=== PATIENT | female | born 1995 | race Caucasian/White ===

== ENCOUNTER → 2020-05-12 | Outpatient (CLI) | payer BC, SELFPAY ==
[2017-07-13 18:02] VITALS: BMI 20.3
== END | disposition home or self-care (01) ==
LOC: LABSPEC 15:28
PROVIDERS: PCP Family Medicine; Referring Provider Family Medicine; Visit Provider Family Medicine
DX: Z20.828 Contact with and (suspected) exposure to other viral communicable diseases (principal)
CPT/HCPCS: 87635; U0003

== ENCOUNTER → 2020-06-03 | Outpatient (CLI) | payer BC, SELFPAY ==
[2017-07-13 18:02] VITALS: BMI 20.3
== END | disposition home or self-care (01) ==
LOC: LABSPEC 11:33
PROVIDERS: PCP Family Medicine; Referring Provider Family Medicine; Visit Provider Family Medicine
DX: U07.1 COVID-19 (principal)
CPT/HCPCS: 87635; U0003

== ENCOUNTER 2020-07-05 14:28 | Emergency (ER) | payer BC, SELFPAY ==
[2020-07-05 14:28] VITALS: BP 129/82; PULSE 82; RESP 16; TEMP 36.5; O2SAT 97; BMI 24.3
--- NOTE | 2020-07-05 15:13 | RAD_ITS ---
STUDY: X-RAY CHEST REASON FOR EXAM: Female, 25 years old. chest pain for several days, feels like a pulled muscle TECHNIQUE: AP COMPARISON: 01/27/2015 FINDINGS: The lungs are clear and expanded. There is no demonstrated pleural abnormality. Normal size heart. Normal mediastinum and tish. Normal visualized pulmonary arteries. Normal visualized aortic arch and descending thoracic aorta. Normal visualized thoracic spine. Normal visualized ribs, clavicles, and shoulders. There is no demonstrated abnormality of the visualized soft tissue structures of the upper abdomen. RAD/Chest 1 View (Portable) IMPRESSION: Nonacute portable x-ray examination of the chest. Electronically Signed: Kane Aceves MD ([place]) at 15:30 EST , Service support ,
--- NOTE | 2020-07-05 15:14 | EKG12_ITS ---
Test Reason : Blood Pressure : / mmHG Vent. Rate : 079 BPM Atrial Rate : 079 BPM P-R Int : 108 ms QRS Dur : 080 ms QT Int : 394 ms P-R-T Axes : 004 064 023 degrees QTc Int : 451 ms Sinus rhythm with short NE Otherwise normal ECG Confirmed by ASAD BOOKER, BRIAN ([id number]), movie editor BISHOP FRANCIS ([id number]) on 07/06/2020 10:34:17 AM Referred By: TRISTON Confirmed By:BRIAN KAMARA MD
[2020-07-05] MEDS: Naproxen 250 MG Tablet 500 MG PO (15:18)
--- NOTE | 2020-07-05 15:48 | ED.DCSUM_ITS ---
- ER Visit Summary Date of Service: 07/05/20 Chief Complaint: Chest pain History of Present Illness: The patient is a [address] Dasilva. She reports that she has chest pain began 2 days ago. Intermittent pain that lasts seconds at a time. She describes it as throbbing. She does have palpitations w ith this. Pain is 5 out of 10 at worst and she is pain-free currently. Is worsened by touching it. She denies any change with exertion, breathing, or movement. Is relieved by nothing. She reports that she does get mildly short of breath with this. She denies any nausea, vomiting, or diaphoresis. Patient denies any recent trauma. No fall or MVA. She denies any change in activity, but does state that she lifts weight and has been pushing herself. Patient denies any personal or family history of DVT. No recent travel. She is not on control pills. She does not smoke. She denies fever, chills, or cough. No known Covid exposure. She does wear a mask. Physical Examination: Vitals: Stable. Afebrile. General: Well-nourished and well-developed. Head: Normocephalic atraumatic. Neck: Supple, no lymphadenopathy. No JVD. Nontender. Cardiovascular: Regular rate and rhythm. No murmurs. Respiratory: No respiratory distress. Clear to auscultation bilaterally. Moderate tenderness palpation over the left costochondral margin that does reproduce her pain. Abdominal: Soft, nontender, nondistended, normal bowel sounds. No guarding, rebound, or peritoneal signs. Back: Nontender. Extremities: Nontender, no edema. Skin: Normal color, no rash. Neurologic: Alert and oriented ?3. Cranial nerves II through XII are intact. Normal strength and sensation. Psych: Normal affect. Test Results: EKG is sinus at 79. Her GA interval is 108. However, there is no delta wave. The only change from May 2015 is that then her GA interval was 124. Clinical Impression(s) from Imaging Studies Chest X-Ray 07/05/20 15:13 IMPRESSION: Nonacute portable x-ray examination of the chest. Electronically Signed: Kane Aceves MD ([place]) at 15:30 EST , Service support , Emergency Department Course and Treatment: Patient was treated with naproxen. She is resting comfortably. Her palpitations last seconds at a time. With a short GA interval she may have SVT. However, it does not look like WPW without a delta wave. Treatment Plan: Patient will be discharged instructions to not exercise that area until her pain improves. She is instructed use ibuprofen and/or Tylenol for pain. Follow-up her primary care physician 1 week if not improving. Return to the emergency department for any worsening symptoms. Disposition: To home in improved and stable condition. Impression: 1. Musculoskeletal chest pain. 2. Short GA interval. 3. Palpitations. This note was generated with [employer] dictation software. It may contain incorrect words, spelling, and punctuation that were not noted in review of the chart prior to signing ED Disposition - Plan for ED Patient: Instructions: ED Chest Wall Pain, Costochondritis Referrals: Celso Hill MD [Primary Care Provider] - 1 Week if not improving
[2020-07-05 15:53] VITALS: O2SAT 98
== END 2020-07-05 15:55 | disposition home or self-care (01) ==
LOC: ED 14:56
PROVIDERS: Emergency Provider Emergency Medicine; PCP Family Medicine
DX: R07.89 Other chest pain (principal); R00.2 Palpitations; J45.909 Unspecified asthma, uncomplicated; Z79.51 Long term (current) use of inhaled steroids
CPT/HCPCS: 71045; 93005; 99283

== ENCOUNTER 2020-09-30 08:27 | Outpatient (RCR) | payer BC, SELFPAY | END 2020-12-01 23:59 | LOC: IMMUN 08:27 | PROVIDERS: PCP Family Medicine; Referring Provider Family Medicine; Visit Provider Family Medicine | DX: Z23 Encounter for immunization (principal) | CPT/HCPCS: 0001A; 0002A; 91300 ==

== ENCOUNTER 2021-07-12 16:50 | Outpatient (CLI) | payer OTHER, SELFPAY ==
[2021-07-12 17:50] LABS: Hematocrit 38.2 % (37-47); Hemoglobin 12.8 g/dL (12.0-15.0); Mean Corp Hgb Conc 33.5 g/dL (32-36); Mean Corpuscular Hgb 29.7 pg (27.0-32.0); Mean Corpuscular Volume 88.6 fL (81-99); Mean Platelet Vol. 10.8 fl (6.2-12.0); Platelet Count 177 K/mm3 (150-450); RBC Distribution Width CV 12.3 % (11.6-14.6); RBC Distribution Width SD 39.9 fl (35.1-43.9); Red Blood Count 4.31 M/mm3 (4.2-5.4); White Blood Count 6.4 K/mm3 (4.4-11.0)
[2021-07-12 18:01] LABS: Erythrocyte Sedimentation Rate 1 mm/hr (0-30)
[2021-07-12 18:20] LABS: Vitamin D,25 Hydroxy 17.4 ng/mL
[2021-07-12 18:27] LABS: ALB/GLOB Ratio 1.4 RATIO (0.9-2.4); AST(SGOT) 19 U/L (15-37); Alanine Aminotransfer ALT/SGPT 19 U/L (13-56); Albumin, Serum 4.1 g/dL (3.2-5.0); Alkaline Phosphatase 72 U/L (45-117); Anion Gap 8 (5-15); BUN 10 mg/dL (7-18); BUN/Creat Ratio 12.9 RATIO (10-20); Calcium,Total 8.7 mg/dL (8.5-10.1); Chloride 105 mmol/L (98-107); Creatinine, Serum 0.78 mg/dL (0.55-1.02); EST Glomerular Filtration Rate 96 mL/min (>60); Est Glom Filt Rate - Afr Amer 116 mL/min (>60); Ferritin 16 ng/mL (8-252); Glucose 88 mg/dL (74-106); Iron 71 ug/dL (50-170); Potassium 3.3 mmol/L (3.5-5.1); Protein, Total 7.1 g/dL (6.4-8.2); Sodium Level 140 mmol/L (136-145); Thyroid Stim Hormone (TSH) 3.29 uIU/mL (0.358-3.74)
== END 2021-07-12 23:59 | disposition short-term general hospital (02) ==
LOC: MTLAB 16:52
PROVIDERS: PCP Family Medicine; Referring Provider Family Medicine; Visit Provider Family Medicine
DX: R53.83 Other fatigue (principal)
CPT/HCPCS: 36415; 80053; 82306; 82728; 83540; 84443; 85027; 85652

== ENCOUNTER 2022-07-02 03:01 | Emergency (ER) | payer SELFPAY ==
[2022-07-02 03:02] VITALS: BP 134/111; PULSE 97; RESP 16; TEMP 36.6; O2SAT 98; BMI 15.8
[2022-07-02] MEDS: 0.9% Normal Saline 1,000 ML 1000 ML IV (03:35)
[2022-07-02] MEDS: Ondansetron 4 MG/2 ML Vial IV (03:35)
[2022-07-02] MEDS: LORazepam 2 MG/ML Syringe 0.5 MG IV (03:37)
--- NOTE | 2022-07-02 04:27 | EDS_ITS ---
HPI History of Present Illness Chief Complaint: Anxiety Detail of Chief Complaint: Anxiety, depression, nausea and vomiting Informant: patient Onset/Context/Timing Onset: Days Context: Sudden Onset Timing: Continuous and Waxes and wanes Quality: Patient states she broke up with her significant other. Location: Generalized Current Severity: Moderate Maximum Severity: Severe Worsened by: Situational anxiety and depression Relieved by: Nothing Associated Symptoms Associated Symptoms: Nausea, vomiting, abdominal discomfort Narrative Narrative: Patient is a 27-year-old female who presents with depression without suicidal ideation, anxiety, abdominal pain, nausea vomiting. She denies fever, chills night sweats. She denies intolerance to greasy or fried foods. She denies cardiac or respiratory symptoms. She reports decreased urine output. She does complain of thirst and dry mouth. She does report lightheadedness with standing. She also reports feeling weak. She denies headache, visual, ocular auditory symptoms. She does report trouble getting to sleep and staying asleep. She does report being sad. She denies suicidal homicidal ideation. She states she broke up with her significant other because she was no longer happy being with him. Prior similar symptoms: No Recent Illness/Hospitalization: No [facility] Medical History Depression Home Medications lorazepam 0.5 mg tablet (Ativan) 0.5 mg PO TID PRN anxiety 3 days #10 tabs 07/02/22 [Rx Last Taken Unknown] ondansetron 4 mg disintegrating tablet 4 mg PO Q8H PRN PRN Nausea #10 tabs 07/02/22 [Rx Last Taken Unknown] Allergy/AdvReac Type Severity Reaction Status Date / Time No Known Allergies Allergy Verified 07/05/20 14:30 Social History (Updated 07/02/22 @ 04:[address] Clemente Gonzáles MD) household members: none Smoking Status: Never smoker substance use type: marijuana ROS ROS ED Constitutional Constitutional ED: Reports weight loss; Denies chills, fever(s), subjective or sweats Eyes Eyes: Denies blurry vision, change in vision or diplopia ENT ENT ED: Denies ear pain, rhinorrhea or sore throat Cardiovascular Cardiovascular: Reports palpitations and racing heartbeat; Denies chest pain, orthopnea or paroxysmal nocturnal dyspnea Respiratory/Chest Respiratory/Chest: Denies cough, dyspnea, dyspnea on exertion, orthopnea or paroxysmal nocturnal dyspnea Gastrointestinal Gastrointestinal: Reports abdominal pain, nausea and vomiting; Denies constipation or diarrhea Genitourinary Genitourinary ED: Denies dysuria, hematuria or urinary frequency Musculoskeletal Musculoskeletal: Denies arthralgias, back pain, myalgias or neck pain Neurologic Neurologic: Denies headache(s) or paresthesias Psychiatric Psychiatric: Reports anxiety and depression; Denies suicidal ideation Endocrine Endocrinology: Denies cold intolerance or heat intolerance Hematologic/Lymphatic Hematologic/Lymphatic: Reports systems reviewed and no addt'l complaints, except as documented EXAM Physical Exam Const Vital Signs: 07/02/22 03:02 Temperature 97.8 F Temperature Source Oral Pulse Rate 97 Respiratory Rate 16 Blood Pressure 134/111 H Blood Pressure Mean 118 Pulse Ox 98 Oxygen Delivery Method Room Air Positive well nourished and well developed Constitutional Narrative: Patient is crying. She appears upset. She also is vomiting. General Appearance ED: well developed and pallor; Negative for cyanotic or diaphoretic HEENT Reports dry mucous membranes HEENT Narrative: Head is atraumatic normocephalic. Ears normal. Nares patent. Uvula midline. No deviation of tongue with protrusion. There is no erythema or exudate of posterior pharynx. Mouth ED: Yes dry mucous membranes Mouth: dry mucous membranes Eyes PERRL and EOMs intact bilaterally General Eye ED: Negative for pale conjunctiva or scleral icterus Neck no lymphadenopathy, supple and no JVD Chest Wall inspection of chest normal and palpation of chest normal Resp normal respiratory effort and clear to auscultation bilaterally Cardio regular rate, regular rhythm, S1 normal heart sound, S2 normal heart sound and no murmurs GI normal to inspection, nondistended, normoactive bowel sounds, non-tender, non- distended and no masses; Negative for hepatosplenomegaly Back/Spine no CVA tenderness Extremity normal to inspection General Extremety ED: Negative for edema or tenderness General Extremity: Negative for edema Neuro oriented x3, CN's II-XII intact bilaterally and no sensory deficits noted Sensorium / Orientation: alert Psych Negative for mental status grossly normal Mood & Affect: depressed, anxious and tearful Skin no rashes or lesions noted, no wounds and skin turgor normal General Skin Exam: elasticity normal and pallor; Negative for jaundice MDM MDM MDM Narrative Medical decision making narrative: Patient patient with depression anxiety due to break-up with significant other. Patient was treated with IV Zofran, lorazepam and IV fluids. Clinically she was dehydrated. Patient was reassessed at 0431. Patient reports nausea and has not vomited since she received the Zofran. Plan is referral to counseling center and antiangiolytic. Discharge Plan Triage Chief Complaint: Anxiety ED Provider: Clemente Gonzáles Dx/Rx/DC Orders Clinical Impression: Situational mixed anxiety and depressive disorder, Abdominal pain, Nausea & vomiting, Dehydration, mild Instructions: ED Anxiety Reaction, ED Depression Prescriptions: New ondansetron [ondansetron] 4 mg tablet,disintegrating 4 mg PO Q8H PRN PRN (Reason: Nausea) Qty: 10 0RF lorazepam [Ativan] 0.5 mg tablet 0.5 mg PO TID PRN (Reason: anxiety) 3 Days Qty: 10 0RF Primary Care Provider: Celso Hill Referrals: Counseling,Center [Group of Physicians] - 3-5 Days Celso Hill MD [Primary Care Provider] - 3-5 Days Disposition Disposition: Home, Self Care
[2022-07-02 04:46] VITALS: BP 128/60; PULSE 89; RESP 16
== END 2022-07-02 04:46 | disposition home or self-care (01) ==
PROVIDERS: Emergency Provider Emergency Medicine; PCP Family Medicine; Visit Provider Emergency Medicine
DX: F41.9 Anxiety disorder, unspecified (principal); F32.A Depression, unspecified; E86.0 Dehydration; R11.2 Nausea with vomiting, unspecified
CPT/HCPCS: 96361; 96374; 96375; 99283; J7030; A4216; J2405